=== PATIENT | male | born 1955 ===

== ENCOUNTER 2018-03-13 08:42 | Day surgery (SDC) | payer OTHER ==
[2015-12-11 07:19] VITALS: BMI 34.8
[2018-03-13] MEDS ORDERED: HYDROmorphone 0.5 mg/0.5 ml ISec IVP PRN (12:16)
[2018-03-13] MEDS ORDERED: Propofol 10 mg/ml Inj (20 ML) ONE (12:24)
[2018-03-13] MEDS ORDERED: Midazolam 2 MG/2 ML VIAL ONE (12:25)
[2018-03-13] MEDS ORDERED: Ciprofloxacin 400mg/200ml D5W 400 MG/200 ML BAG IVPB ONE (12:31)
[2018-03-13] MEDS ORDERED: Gentamicin 80 mg in 0.9% NS 160 MG/200 ML BAG IVPB ONE (12:31)
[2018-03-13] MEDS ORDERED: Lactated Ringer's 1,000 ML IV ONE (13:15)
--- NOTE | 2018-03-13 13:15 | PCM.SURG1 ---
Surgeon's Initial Post Op Note - Surgeon's Notes Surgeon: Shawn [employer]idential [employer] Manager: N/A Type of Anesthesia: General LMA Anesthesia Administered By: Staff Pre-Operative Diagnosis: BPH/KATZ Operative Findings: same Post-Operative Diagnosis: same Operation Performed: TULAP Specimen/Specimens Removed: NA Estimated Blood Loss: EBL {In ML}: 0 Blood Products Given: N/A Drains Used: No Drains Post-Op Condition: Good Date of Surgery/Procedure: 03/13/18 Time of Surgery/Procedure: 13:14
[2018-03-13 14:47] VITALS: BP 100/67; PULSE 63; RESP 18; O2SAT 100
[2018-03-13 15:09] VITALS: TEMP 98
--- NOTE | 2018-03-14 08:12 | OP ---
PROCEDURE DATE: 03/13/2018 PREOPERATIVE DIAGNOSIS: Benign prostatic hypertrophy with bladder outlet obstruction. POSTOPERATIVE DIAGNOSIS: Benign prostatic hypertrophy with bladder outlet obstruction. PROCEDURE: TULAP (GreenLight laser ablation of prostate tissue). SURGEON: Aaron Escobar MD DESCRIPTION OF PROCEDURE: The patient was asked to sign a detailed informed consent prior to the procedure and agreed to accept all risks, complications, and limitations of this procedure. After a full and complete explanation, he was brought into the room and time-out was taken according to the rules and regulations of [facility]. The patient was positioned in the lithotomy position after anesthesia was achieved and draped and prepped in the usual manner. He was cystoscoped with a laser cystoscope and previous cystoscopic findings were confirmed. The laser fiber was then inserted into the scope and the vaporization of the prostate was begun at 11 o'clock, carried down to 6 o'clock just distal to the verumontanum and carried down to just distal to the bladder neck and carried down to just distal to the verumontanum. The left lateral lobe, the base tissue, and the roof tissue were vaporized in similar fashion. Excellent voiding channel was achieved. There was [id number] bleeding. The bladder was inspected and there was no evidence of injury. Both ureteral orifices were uninjured. The patient tolerated this procedure well. The bladder was filled and the scope removed and a #20 two-way 5-mL catheter was inserted and drained clear irrigant fluid. The patient tolerated the procedure well and was sent to the recovery room in good condition. He will be given a prescription for Cipro and follow up in our office in 24 hours for Pino catheter removal. Aaron Escobar MD
== END 2018-03-13 15:11 | disposition home or self-care (01) ==
LOC: C.SDS 08:42
PROVIDERS: ATTEND Urology
DX: N40.1 Benign prostatic hyperplasia with lower urinary tract symptoms (principal); N32.0 Bladder-neck obstruction; N13.8 Other obstructive and reflux uropathy
CPT/HCPCS: 52648; 82948; J0744; J1170; J1580; J7120